=== PATIENT | female | born 1985 | race Caucasian/White ===

== ENCOUNTER 2019-01-27 13:06 | Emergency (ER) | payer OTHER ==
[2019-01-27 13:17] VITALS: BP 118/79
[2019-01-27 13:42] LABS: BILIRUBIN,URINE NEG (NEG); CLARITY,URINE CLEAR; COLOR,URINE YELLOW; GLUCOSE,URINE NEG (NEG); NITRITE,URINE POS (NEG); UROBILINOGEN,URINE 0.2 mg/dL (0.2 mg/dL)
[2019-01-27 13:43] LABS: BACTERIA,URINE MANY /HPF (0-FEW); SQUAMOUS EPITHELIAL CELL,UR MOD /LPF
[2019-01-27] MEDS ORDERED: ONDANSETRON PF 4 MG/2 ML VIAL. IVP ONE (13:45)
[2019-01-27 13:51] LABS: BASO # 0.1 x10^3/uL (0.0-0.2); BASO % 2 % (0-3); EOS # 0.3 x10^3/uL (0.0-0.7); EOS % 5 % (0-3); HEMOGLOBIN 13.4 g/dL (12.0-15.5); LYMPH # 2.1 x10^3/uL (1.0-4.8); LYMPH % 34 % (24-48); MEAN CORPUSCULAR HEMOGLOBIN 29 pg (25-35); MEAN CORPUSCULAR HGB CONC 33 g/dL (31-37); MEAN CORPUSCULAR VOLUME 90 fL (79-100); MONO # 0.5 x10^3/uL (0.0-1.1); MONO % 8 % (0-9); NEUT # 3.1 x10^3uL (1.8-7.7); NEUT % 51 % (31-73); PLATELET COUNT 319 x10^3/uL (140-400); RED BLOOD COUNT 4.58 x10^6/uL (3.50-5.40); WHITE BLOOD COUNT 6.1 x10^3/uL (4.0-11.0)
[2019-01-27 13:56] LABS: CALCIUM 8.9 mg/dL (8.5-10.1); CREATININE 0.8 mg/dL (0.6-1.0); GFR 81.6; POTASSIUM 3.4 mmol/L (3.5-5.1)
[2019-01-27] MEDS ORDERED: IOHEXOL 300 MG/ML 75 ML VIAL. IV ONE (14:00)
--- NOTE | 2019-01-27 14:09 | ED.ADGEN ---
Past History Past Medical History: Hypothyroid Past Surgical History: No Surgical History Alcohol Use: None Drug Use: None Adult General Chief Complaint Chief Complaint Lower back pain HPI HPI Patient is a 33-year-old female presents with intermittent left lower back pain radiating to left pelvis. Pain has been intermittent times one year with most recent episode starting 1 week ago. Previous workup/pelvic ultrasounds by her [facility] which she states were and diagnostic. Patient was evaluated at urgent care today and prescribed muscle relaxant for pain and was in the process of getting set medication filled at the pharmacy when pain significantly increased. Pain is worse with palpation and rotation bending movement it is partially relieved with standing. Reports fullness/pressure sensation and pelvis with sensation that something was going to pop. Patient does not currently have menstrual periods and is breast-feeding. Denies nausea vomiting, sweats, urinary frequency urgency dysuria hematuria history kidney stones. No other acute symptoms or complaints.[] Review of Systems Review of Systems Review symptoms as per history of present illness. All other review symptoms are negative. All other systems were reviewed and found to be within normal limits, except as documented in this note. Current Medications Current Medications Current Medications Medications (Trade) Dose Ordered Sig/Jr Start Time Stop Time Status Last Admin Dose Admin Cefepime HCl (Maxipime) 2 gm STK-MED ONCE 01/27/19 14:59 01/27/19 14:59 DC Cefepime HCl 2 gm/ Sodium Chloride 100 ml @ 200 mls/hr Q8HRS 01/27/19 15:00 01/27/19 15:05 200 MLS/HR Fentanyl Citrate (Fentanyl 2ml Vial) 75 mcg 1X ONCE 01/27/19 13:45 01/27/19 13:46 DC 01/27/19 13:37 75 MCG Iohexol (Omnipaque 300 Mg/ml) 75 ml 1X ONCE 01/27/19 14:00 01/27/19 14:01 DC 01/27/19 14:02 75 ML Metoclopramide HCl (Reglan Vial) 10 mg 1X ONCE 01/27/19 15:00 01/27/19 15:01 DC 01/27/19 15:04 10 MG Ondansetron HCl (Zofran) 4 mg 1X ONCE 01/27/19 13:45 01/27/19 13:46 DC 01/27/19 13:37 4 MG Sodium Chloride 100 ml @ As Directed STK-MED ONCE 01/27/19 14:59 01/27/19 14:59 DC Allergies Allergies Allergies Coded Allergies Type Severity Reaction Last Updated Verified Penicillins Allergy Unknown 01/27/19 Yes Physical Exam Physical Exam Constitutional: Well developed, today her distress secondary to pain unable to sit or stand[] HENT: Normocephalic, atraumatic, bilateral external ears normal, nose normal. [] Eyes: PERRLA, EOMI, conjunctiva normal, no discharge. [] Neck: Normal range of motion, no tenderness, supple, no stridor. [] Cardiovascular:Heart rate regular rhythm, no murmur [] Lungs & Thorax: Bilateral breath sounds clear to auscultation [] Abdomen: Bowel sounds normal, soft, no tenderness. [] Skin: Warm, dry, no erythema, no rash. [] Back: No midline tenderness, lower lumbar pain/tenderness, rib pain reproduces with palpation, lateral rotation. No CVA tenderness. [] Extremities: No tenderness, no cyanosis, no clubbing, ROM intact, no edema. [] Neurologic: Alert and oriented X 3, normal motor function, normal sensory function, no focal deficits noted. [] Current Patient Data Vital Signs Vital Signs Date Time Temp Pulse Resp B/P (MAP) Pulse Ox O2 Delivery O2 Flow Rate FiO2 01/27/19 13:17 98.4 77 18 98 Room Air Lab Results Laboratory Tests Test 01/27/19 13:12 01/27/19 13:22 01/27/19 13:31 Urine Collection Type Unknown Urine Color Yellow Urine Clarity Clear Urine pH 7.0 Urine Specific [place] 1.015 Urine Protein Neg (NEG-TRACE) Urine Glucose (UA) Neg mg/dL (NEG) Urine Ketones (Stick) Neg mg/dL (NEG) Urine Blood Neg (NEG) Urine Nitrite Pos (NEG) Urine Bilirubin Neg (NEG) Urine Urobilinogen Dipstick 0.2 mg/dL (0.2 mg/dL) Urine Leukocyte Esterase Neg (NEG) Urine RBC 1-2 /HPF (0-2) Urine WBC 1-4 /HPF (0-4) Urine Squamous Epithelial Cells Mod /LPF Urine Bacteria Many /HPF (0-FEW) POC Urine HCG, Qualitative hcg negative (Negative) White Blood Count 6.1 x10^3/uL (4.0-11.0) Red Blood Count 4.58 x10^6/uL (3.50-5.40) Hemoglobin 13.4 g/dL (12.0-15.5) Hematocrit 41.0 % (36.0-47.0) Mean Corpuscular Volume 90 fL (79-100) Mean Corpuscular Hemoglobin 29 pg (25-35) Mean Corpuscular Hemoglobin Concent 33 g/dL (31-37) Red Cell Distribution Width 14.0 % (11.5-14.5) Platelet Count 319 x10^3/uL (140-400) Neutrophils (%) (Auto) 51 % (31-73) Lymphocytes (%) (Auto) 34 % (24-48) Monocytes (%) (Auto) 8 % (0-9) Eosinophils (%) (Auto) 5 % (0-3) H Basophils (%) (Auto) 2 % (0-3) Neutrophils # (Auto) 3.1 x10^3uL (1.8-7.7) Lymphocytes # (Auto) 2.1 x10^3/uL (1.0-4.8) Monocytes # (Auto) 0.5 x10^3/uL (0.0-1.1) Eosinophils # (Auto) 0.3 x10^3/uL (0.0-0.7) Basophils # (Auto) 0.1 x10^3/uL (0.0-0.2) Sodium Level 141 mmol/L (136-145) Potassium Level 3.4 mmol/L (3.5-5.1) L Chloride Level 102 mmol/L (98-107) Carbon Dioxide Level 29 mmol/L (21-32) Anion Gap 10 (6-14) Blood Urea Nitrogen 19 mg/dL (7-20) Creatinine 0.8 mg/dL (0.6-1.0) Estimated GFR (Cockcroft-Gault) 81.6 Glucose Level 112 mg/dL (70-99) H Calcium Level 8.9 mg/dL (8.5-10.1) EKG EKG [] Radiology/Procedures Radiology/Procedures [CT abdomen pelvis: Findings of acute appendicitis] Course & Med Decision Making Course & Med Decision Making Pertinent Labs and Imaging studies reviewed. (See chart for details) [Antibiotics, pain medications given. Dr. Monterroso accepts to [facility] Final Impression Final Impression [#1 acute appendicitis] Luis Manuel Disclaimer Luis Manuel Disclaimer This electronic medical record was generated, in whole or in part, using a voice recognition dictation system. BARBRA DE LEÓN DO Jan 27, 2019 14:09
[2019-01-27] MEDS ORDERED: IV NORMAL SALINE 1,000ML 1,000 ML IV ONE (14:15)
--- NOTE | 2019-01-27 14:39 | RAD ---
CT ABD PELV W/ IV CONTRST ONLY History: Left lower quadrant pain. Technique: After the administration of intravenous contrast, CT imaging was performed of the abdomen and pelvis. Multiplanar images are reviewed. Exposure: One or more of the following individualized dose reduction techniques were utilized for this examination: 1. Automated exposure control 2. Adjustment of the mA and/or kV according to patient size 3. Use of iterative reconstruction technique. Comparison: None Findings: Lower chest: No consolidation or pleural effusion. Abdomen and pelvis: The liver, spleen, adrenal glands, gallbladder, and pancreas are unremarkable. No biliary ductal dilatation. Patent portal veins. Normal appearance of the kidneys. No hydronephrosis. No renal calculi. Tiny left mid renal hypodensity, too small to further characterize. Large appendicolith at the base of the appendix measures 1.1 cm in. Dilated thick walled fluid-filled appendix measures up to 1 cm. Minimal adjacent inflammatory changes. No perforation or abscess. No evidence of bowel obstruction. Tiny foci of gas within the urinary bladder. IUD within the endometrial canal. Multiple bilateral ovarian follicles. No pathologic lymphadenopathy. No ascites. Bones: No pathologic osseous lesions. Impression: 1. Findings of acute appendicitis. 2. Tiny foci of air within the urinary bladder, may relate to recent instrumentation less likely infection. FOR INTERNAL CODING PURPOSES Critical result: Findings discussed with BARBRA DE LEÓN at 01/27/2019 2:33 PM. RESULT CODE: (C) Electronically signed by: Modesto Castellanos DO (01/27/2019 2:36 PM) [facility]
[2019-01-27] MEDS ORDERED: CEFEPIME HCL 2 GM VIAL IV ONE (14:59)
[2019-01-27] MEDS ORDERED: IV NORMAL SALINE 100ML 100 ML ONE (14:59)
[2019-01-27] MEDS ORDERED: CEFEPIME HCL 2 GM in IV NORMAL SALINE 100ML 100 ML IV SCH (15:00)
[2019-01-27] MEDS ORDERED: METOCLOPRAMIDE HCL 10 MG/2 ML VIAL. IVP ONE (15:00)
== END 2019-01-27 16:00 | disposition short-term general hospital (02) ==
LOC: ER 13:06
DX: K35.80 Unspecified acute appendicitis (principal); E03.9 Hypothyroidism, unspecified; Z88.0 Allergy status to penicillin
CPT/HCPCS: 36415; 74177; 80048; 81001; 81025; 85025; 87086; 96365; 96375; 99285; J0692; J2405; J2765; J3010; Q9967